=== PATIENT | female | born 1955 | race Caucasian/White ===

== ENCOUNTER → 2023-02-21 | Day surgery (SDC) | payer OTHER ==
[~2023-02-21] VITALS: Ht 165.1 cm; Wt 107.5 kg
[~2023-02-21] MED LIST: ANTIVERT/2525 MG PO; Carafate1 GM PO; OMEPRAZOLE40 MG PO; ONDANSETRON HYDR4 MG PO; PROCHLORPERAZIN10 MG PO; SERTRALINE HYD100 MG PO; VITAMIN D250 MC1 PO
[2023-02-21 10:15] VITALS: BP 133/52
[2023-02-21 11:37] VITALS: BP 133/59
[2023-02-21 11:53] VITALS: BP 118/48
[2023-02-21 12:07] VITALS: BP 138/60
== END | disposition home or self-care (01) ==
LOC: SDC 02-16 15:30
PROVIDERS: ATTEND Ophthalmology
DX: H25.812 Combined forms of age-related cataract, left eye (principal); J44.9 Chronic obstructive pulmonary disease, unspecified; K21.9 Gastro-esophageal reflux disease without esophagitis; F32.A Depression, unspecified; Z87.891 Personal history of nicotine dependence; Z98.890 Other specified postprocedural states

== ENCOUNTER → 2023-03-21 | Day surgery (SDC) | payer OTHER ==
[~2023-03-21] VITALS: Ht 167.6 cm; Wt 106.1 kg
[~2023-03-21] MED LIST changes: +ASPIRIN81 M1 PO; +CLARITIN10 MG PO; +HYDROCODONE-AC1 EAC2 PO; +VITAMIN B122500 MCG PO; +VITAMIN D3125 MCG PO
[2023-03-21 13:00] VITALS: BP 125/55
[2023-03-21 14:02] VITALS: BP 128/92
[2023-03-21 14:15] VITALS: BP 109/52
[2023-03-21 14:32] VITALS: BP 128/75
== END | disposition home or self-care (01) ==
LOC: SDC 03-16 14:45
PROVIDERS: ATTEND Ophthalmology
DX: H25.811 Combined forms of age-related cataract, right eye (principal); K21.9 Gastro-esophageal reflux disease without esophagitis; J44.9 Chronic obstructive pulmonary disease, unspecified; F32.A Depression, unspecified; M47.812 Spondylosis without myelopathy or radiculopathy, cervical region; Z85.07 Personal history of malignant neoplasm of pancreas; G47.30 Sleep apnea, unspecified; Z87.891 Personal history of nicotine dependence; Z96.653 Presence of artificial knee joint, bilateral; Z79.82 Long term (current) use of aspirin; Z79.899 Other long term (current) drug therapy; Z99.89 Dependence on other enabling machines and devices